=== PATIENT | female | born 2000 | race Caucasian/White ===

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

== ENCOUNTER 2022-07-25 14:00 | Day surgery (SDC) | payer BC, SELFPAY ==
[2022-07-25] VITALS (8 sets, daily range): BP systolic 114–143; BP diastolic 43–76; PULSE 61–78; RESP 11–19; TEMP 36.6–37.5; O2SAT 97–100; BMI 22.1
[2022-07-25 14:26] LABS: Bilirubin Negative (Negative); Blood Large (Negative); Clarity Clear (Clear); Glucose Negative (Negative); Ketones Negative (Negative); Leukocyte Esterase Negative (Negative); Nitrite Negative (Negative); Urobilinogen 0.2 mg/dL (Up to 0.2)
--- NOTE | 2022-07-25 14:30 | DI.CT_ITS ---
Exam(s) CT ABDOMEN PELVIS W EXAM: CT ABDOMEN PELVIS W CLINICAL HISTORY: right lower quadrant abdominal pain TECHNIQUE: Imaging Protocol: Axial computed tomography images with coronal and sagittal reformatted images were created and reviewed CONTRAST MATERIAL: Intravenous: Omnipaque 350 Contrast volume:100 mL Oral: No COMPARISON: No exams were available for comparison FINDINGS: ABDOMEN: Lung Bases: Normal where visualized. Liver: Normal density. No measurable mass. Portal, Superior Mesenteric, and Splenic Veins: Unremarkable. Gallbladder and Biliary Tract: No radiodense calculus or dilation. Pancreas: Normal density, no abnormal calcifications or inflammatory process. Spleen: Normal. Adrenals: No masses seen. Kidneys: Normal size, contour and axis. No radiodense stones or obstructive uropathy. No masses seen. Abdominal Aorta: Abdominal portion non-dilated. Bowel: No obstruction or bowel wall thickening. The appendix measures 9 mm in diameter. There is an appendicolith present. The appendix is fluid-filled. No abscess or free air. Peritoneal Cavity: There is a small amount of fluid in the pelvis. No free air. Lymph Nodes: Within normal limits. Bones: Within normal limits for the patient's age. Soft Tissues: Unremarkable. PELVIS: Bladder: Symmetric distention, no gross wall thickening. Reproductive Organs: Unremarkable as visualized. Lymph Nodes: Within normal limits. Bones: Within normal limits for the patient's age. IMPRESSION: 1. Findings consistent with acute appendicitis with appendicoliths. No abscess or free air. 2. Findings were discussed with Dr. Castillo Crowder at 3:58 p.m. on 07/25/2022. RADIATION DOSE DELIVERED: 681.01mGy.cm Total DLP DATA REPOSITORY: All CT scans at this facility are submitted to the National Radiology Data Registry (NRDR) Dose Index Registry (DIR) with the [employer] ([employer]). RADIATION OPTIMIZATION: All CT scans at this facility use at least one of these dose optimization te chniques: automated exposure control; mA and/or kV adjustment per patient size (includes targeted exa ms where dose is matched to clinical indication); or iterative reconstruction.
[2022-07-25 14:34] LABS: Bacteria Few HPF (Negative); C & S Indicated? Yes; Casts Negative LPF (Negative); Crystals Negative HPF (Negative); Epithelial Cells Few HPF (Negative); Mucus Negative (Negative)
--- NOTE | 2022-07-25 14:42 | ED.GENADUL_ITS ---
Discharge Plan Discharge Details Chief Complaint: Abd Prob Primary Care Provider: Jean Paul Bravo ED Provider: Rubens Crowder Home Meds and New Rx's Prescriptions: No Action fluticasone propionate [Flonase Allergy Relief] 9.9 ML spray,suspension 9.9 ml NS PRN dextroamphetamine-amphetamine [Adderall XR] 10 mg capsule,extended release 24hr 10 mg PO QAM MDD 10mg Qty: 28 0RF Medical Decision Making 22-year-old female presents with abdominal pain. Based off of location and patient's reported symptoms could represent appendicitis or other intra- abdominal abscess and will get CT abdomen pelvis to further evaluate. We will get biliary labs look for signs of hepatitis, pancreatitis, or other biliary disease. We will get broad labs look for electrolyte or metabolic cause of the patient's symptoms. Doubt other causes of the patient's symptoms at this time. No pelvic pain and no vaginal bleeding or discharge so I do not think that this is a obstetrical cause of the patient's symptoms such as ovarian cyst or torsion. Will await initial testing as above and provide some analgesia and reevaluate. HPI General Date/Time Provider Initiated Documentation: 07/25/22 14:26 . Limitations to Documentation: no limitations . Information obtained by: patient and family . HPI Narrative: 22-year-old female presents with right lower quadrant abdominal pain. Started this morning and has been getting worse. Associated with some nausea but no vomiting. No diarrhea or constipation. No vaginal bleeding or discharge. Denying any other complaints. Was worried and came here with her mom. Related Data Home Medications Medication Instructions Recorded Confirmed fluticasone propionate 50 9.9 ml NS PRN 02/22/17 03/03/22 mcg/actuation nasal spray,suspension (Flonase Allergy Relief) dextroamphetamine-amphetamine ER 10 mg PO QAM #28 caps 03/22/22 10 mg 24hr capsule,extend release (Adderall XR) Previous Rx's Medication Instructions Recorded dextroamphetamine-amphetamine ER 10 mg PO QAM #28 caps 03/22/22 10 mg 24hr capsule,extend release (Adderall XR) Allergies Allergy/AdvReac Type Severity Reaction Status Date / Time No Known Allergies Allergy Verified 03/03/22 09:36 General Stated Complaint: Abd Prob DANA: 3 Review of Systems Constitutional Constitutional: Denies chills, Denies fever(s) and Denies headache(s) Eyes Eyes: Denies change in vision ENT Ears, Nose, Mouth, and Throat: Denies headache(s) and Denies odynophagia Cardiovascular Cardiovascular: Denies chest pain and Denies dyspnea Respiratory Respiratory: Denies dyspnea Gastrointestinal Gastrointestinal: Reports abdominal pain, Denies diarrhea, Reports nausea, Denies odynophagia and Denies vomiting Genitourinary Genitourinary: Denies dysuria Musculoskeletal Musculoskeletal: Denies myalgias Integumentary/Breasts Skin/Breast: Denies changing lesions Neurologic Neurologic: Denies behavioral changes and Denies headache(s) Psychiatric Psychiatric: Denies behavioral changes Endocrine Endocrine: Denies heat intolerance Hematologic/Lymphatic Hematologic/Lymphatic: Denies lymphadenopathy PFSH All Active Problems ADHD (attention deficit hyperactivity disorder) evaluation (Acute) Oral contraceptive use (Acute) Ganglion cyst of dorsum of left wrist (Acute) Chronic rhinitis (Acute 03/22/17) Family history of sudden (Acute 05/26/14) PGF AGE 45 Flat feet (Acute 05/26/14) Visual changes (Acute 02/17/14) after strenuous exercise ? related to low blood sugar Hypoglycemia (Acute 02/17/14) not documented but gets lethargic if hasn't eaten- have worked on complex carbs and eating frequently to solve this. Medical History History of blurry vision RSV (respiratory syncytial virus infection) age 6 weeks UTI (urinary tract infection) Surgical History oral surgery Family History Grandfather Heart disease PGF- sudden age 45yr (smoking, ETOH, stress) Hyperlipidemia Brother No problems noted. Brother No problems noted. Social History Smoking/Tobacco Use Status: Never Second Hand Exposure: Yes Smoking risk assessment performed?: Yes Alcohol Intake: never Drug use: Never Substance use type: does not use Caregiver/Support person: No Household members: family Housing: house Communication Needs: None Pets and animals: Yes Pets and animals: dog(s) Do you think of yourself as: straight/heterosexual Current gender identity: female What is your relationship status?: never How often do you talk on the phone with friends or family?: decline to answer How often do you get together with friends or relatives?: decline to answer Do you belong to any clubs or organized social groups?: yes Panel score (0-1 are the most socially isolated patients): 1 What type of physical activity do you participate in: weight lifting and running Duration: 60-90 minutes/day Frequency: daily Kasia/Latter-Day: No preference Special kasia needs: No Seatbelt use: always Helmet use: Yes Working smoke detector in home: Yes Fire extinguisher in home: Yes Carbon monox detector in home: Yes Female Reproductive History Menstrual Age of Menarche: 13 control method: none Exam Const General: cooperative Nutritional Appearance: average body habitus Orientation: alert, awake and oriented x3 HENMT Head: normal to inspection Ears: external ears normal Mouth: moist mucous membranes Eyes Pupils: PERRL EOM: EOM intact bilaterally and No nystagmus Neck Neck: full ROM and no tracheal deviation Chest Chest: normal inspection of the chest Resp Auscultation: clear to auscultation bilaterally Cardio Rate: regular rate Rhythm: regular rhythm GI Inspection: normal to inspection Palpation: soft, no guarding and not rigid Other: Right lower quadrant abdominal tenderness with no guarding, rigidity, or rebound. Otherwise unremarkable abdominal exam. Back/Spine/Pelvis Back: No no CVA tenderness Thoracic/Lumbar Spine: thoracic and lumbar spine normal to inspection Skin General skin exam: no rashes or lesions noted Neuro General: patient alert, patient awake and patient oriented x3 Cranial Nerves: CN's II-XI intact bilaterally, PERRL and no nystagmus Cognition: normal cognition Motor: muscle tone normal throughout and strength 5/5 throughout Sensory Exam: no sensory deficits noted Extrem General: normal to inspection Course Reevaluation(s) Time: 15:46 Reevaluation: Labs unremarkable. CT is pending. I, Rubens Crowder, has signed out care to the oncoming team pending CT and reevaluation. Vital Signs Vital signs: Vital Signs Temperature 37.3 C 07/25/22 14:09 Pulse 78 07/25/22 14:09 Respiratory Rate 18 07/25/22 14:09 Blood Pressure 116/73 07/25/22 14:09 Pulse Oximetry 100 07/25/22 14:09 Temperature 37.3 C 07/25/22 14:09 Temperature Source Oral 07/25/22 14:09 Pulse 78 07/25/22 14:09 Respiratory Rate 18 07/25/22 14:09 Blood Pressure 116/73 07/25/22 14:09 Blood Pressure Position Sitting 07/25/22 14:09 Pulse Oximetry 100 07/25/22 14:09 Oxygen Delivery Method Room Air 07/25/22 14:09 Oxygen Flow Rate 0 07/25/22 14:09 Lab/Test Results Lab/Test Results: 07/25/22 14:14 Urine - Reflex from Ua Urine Culture - Pending Laboratory Tests Range/Units 07/25/22 14:14 Urine Color (Yellow) Yellow Urine Clarity (Clear) Clear Urine pH (5-8) 7.0 Ur Specific [place] (1.005-1.025) 1.020 Urine Protein (Negative) mg/dL Negative Urine Ketones (Negative) mg/dL Negative Urine Blood (Negative) Large H Urine Nitrite (Negative) Negative Urine Bilirubin (Negative) Negative Urine Urobilinogen (Up to 0.2) mg/dL 0.2 Ur Leukocyte Esterase (Negative) Negative Urine RBC (0-2) HPF 5-10 H Urine WBC (0-5) HPF 3-5 Ur Epithelial Cells (Negative) HPF Few Urine Crystals (Negative) HPF Negative Urine Bacteria (Negative) HPF Few Urine Casts (Negative) LPF Negative Urine Mucus (Negative) Negative Ur Culture Indicated? Yes Urine Glucose (Negative) mg/dL Negative POC- Test(urine) Negative
[2022-07-25 15:07] LABS: Abs Immature Grans 0.06 10^3/uL (0.0-0.06); Absolute Monocyte Count 1.31 10^3/uL (0.1-0.8); Basophils % 0.3; Eosinophils % 0.4; HCT 40.6 % (36.0-46.0); HGB 13.9 g/dL (11.2-15.7); Immature Grans % 0.3; Lymphocytes % 8.2; MCH 30.7 pg (27.0-33.0); MCHC 34.2 % (32.0-36.0); MCV 90 fL (80-95); Neutrophils % 83.8; RBC 4.53 10^6/uL (3.93-5.22); RDW 12.7 % (11.7-14.6); RDW-SD 41.9 fL; WBC 18.71 10^3/uL (4.4-10.8)
[2022-07-25 15:14] LABS: Lipase 36 U/L (16-77)
[2022-07-25] MEDS: Lactated Ringers 1,000 ML 1000 ML IV (15:16)
[2022-07-25] MEDS: Ketorolac 30 MG/ML VIAL IVP (15:16)
[2022-07-25] MEDS: Ondansetron 4 MG/2 ML VIAL IVP (15:17)
[2022-07-25 15:20] LABS: Absolute Basophil Count 0.06 10^3/uL (0.0-0.2); Absolute Eosinophil Count 0.07 10^3/uL (0.0-0.7); Absolute Lymphocyte Count 1.53 10^3/uL (1.2-3.4); Absolute Neutrophil Count 15.68 10^3/uL (1.2-6.7)
[2022-07-25 15:21] LABS: ALT 22 U/L (14-59); AST 22 U/L (15-37); Albumin 4.8 g/dL (3.4-5.0); Alkaline Phosphatase 53 U/L (46-116); BUN 13 mg/dL (7-18); Bilirubin, Total 0.4 mg/dL (0.2-1.0); CREATININE 0.8 mg/dL (0.55-1.02); Calcium 9.8 mg/dL (8.5-10.1); Chloride 97 mmol/L (98-107); Estimated GFR 107.44 (mL/min/1.73m2); Glucose 93 mg/dL (74-106); Potassium 3.7 mmol/L (3.5-5.1); Sodium 135 mmol/L (136-145); Total Protein 8.9 g/dL (6.4-8.2)
[2022-07-25] MEDS: Omnipaque 350 MG/ML 100 ML BTL IJ (15:31)
[2022-07-25] MEDS: Normal Saline - Diluent 50 ML VIAL IJ (15:31)
[2022-07-25] MEDS: PIPERACILLIN/TAZO 3.375 GM in Normal Saline 50 ML IVPB (16:21)
[2022-07-25] MEDS: Normal Saline 1,000 ML 125 ML IV (16:21)
--- NOTE | 2022-07-25 16:24 | W.EDPROG ---
Date of service: 07/25/22 Time of Service: 16:24 Medical Decision Making 1624: Care assumed from provider (Armando Crowder MD) Please see their initial HPI, PE, and documentation. Discussed patient details and case and pending workup and disposition. Patient is hemodynamically stable, and alert and oriented. At the time of signout awaiting patient to be transferred to OR for acute appendicitis. 1640: Dr. Guillaume at for patient eval. Patient transferred to OR in stable condition. Sign Out Sign Out Data: Sign Out Comment: pending or with Aundrea Last updated by Rubens Crowder MD at 07/25/22 16:17 Discharge Plan Disposition Condition: Good Discharge Details Chief Complaint: Abd Prob Attending Provider: Pushpa Guillaume Primary Care Provider: Jean Paul Bravo ED Provider: Christianne Camacho Discharge Instructions Activity:: see above Remove Dressings/Wound Care:: 24 hours Shower/Bathe:: 24 hours Diet:: As Tolerated
--- NOTE | 2022-07-25 16:26 | ANES.PREOP_ITS ---
General Info Date of Service Date Performed: 07/25/22 Height: 5 ft 9 in Weight: 68.039 kg Body Mass Index (BMI): 22.1 Surgical Procedure: Laparoscopic Appendectomy Meds Allergies and Home Medications Allergies Allergy/AdvReac Type Severity Reaction Status Date / Time No Known Allergies Allergy Verified 03/03/22 09:36 Home Medication Medication Instructions Recorded fluticasone propionate 50 9.9 ml NS PRN 02/22/17 mcg/actuation nasal spray,suspension (Flonase Allergy Relief) dextroamphetamine-amphetamine ER 10 mg PO QAM #28 caps 03/22/22 10 mg 24hr capsule,extend release (Adderall XR) Current Visit Medications: Current Medications Generic Name Dose Route Start Last Admin Trade Name Freq PRN Reason Stop Dose Admin Piperacillin Sod/Tazobactam 50 mls @ 100 mls/hr 07/25/22 16:01 07/25/22 16:21 Sod 3.375 gm/ Sodium Chloride IVPB 07/25/22 16:30 100 mls/hr NOW ONE Administration Protocol Sodium Chloride 1,000 mls @ 125 mls/hr 07/25/22 16:15 07/25/22 16:21 Saline 1000ml Bag IV 125 mls/hr INFUSION ANIKET Administration Iohexol 100 ml 07/25/22 15:30 07/25/22 15:31 Omnipaque 350 Mg/Ml 100 Ml Btl IJ 08/24/22 23:59 100 ml DIRECTED ANIKET Administration Sodium Chloride 50 ml 07/25/22 15:45 07/25/22 15:31 Normal Saline - Diluent 50 Ml Vial IJ 50 ml .FOR DI USE ANIKET Administration PFSH Active Problems Active Problems: Problem Status Onset Code ADHD (attention deficit hyperactivity disorder) evaluation Z13.39 Oral contraceptive use Z30.41 Ganglion cyst of dorsum of left wrist M67.432 Chronic rhinitis 03/22/17 J31.0 Family history of sudden 05/26/14 Z84.89 Flat feet 05/26/14 M21.41, M21.42 Visual changes 02/17/14 H53.9 Hypoglycemia 02/17/14 E16.2 Medical History Medical History (Updated 07/25/22 @ 16:31 by Pushpa Guillaume DO) History of blurry vision RSV (respiratory syncytial virus infection) age 6 weeks UTI (urinary tract infection) Surgical History Surgical History oral surgery Tobacco Smoking/Tobacco Use Status: Never Passive smoking exposure: Yes Second hand exposure: Yes Alcohol Alcohol Intake: never Substance Use Substance use: Never Substance use type: does not use Vital Signs and Lab Results Vital Signs Most Recent Vital Signs in EMR: Most Recent Vital Signs Temp Pulse Resp BP Pulse Ox 37.3 C 78 18 116/73 100 07/25/22 14:09 07/25/22 14:09 07/25/22 14:09 07/25/22 14:09 07/25/22 14:09 Point of Care Results Point of Care Results: POC- Test(urine) Negative 07/25/22 14:18 Lab Results 07/25/22 14:56 07/25/22 14:56 Blood Type / Crossmatch: No Data to Display Complete Blood Count: White Blood Count 18.71 10^3/uL (4.4-10.8) H 07/25/22 14:56 Red Blood Count 4.53 10^6/uL (3.93-5.22) 07/25/22 14:56 Hemoglobin 13.9 g/dL (11.2-15.7) 07/25/22 14:56 Hematocrit 40.6 % (36.0-46.0) 07/25/22 14:56 Platelet Count 10^3/uL (130-400) 07/25/22 14:56 Complete Metabolic Panel: Sodium 135 mmol/L (136-145) L 07/25/22 14:56 Potassium 3.7 mmol/L (3.5-5.1) 07/25/22 14:56 Chloride 97 mmol/L (98-107) L 07/25/22 14:56 Carbon Dioxide 27.0 mmol/L (21.0-32.0) 07/25/22 14:56 BUN 13 mg/dL (7-18) 07/25/22 14:56 Creatinine 0.8 mg/dL (0.55-1.02) 07/25/22 14:56 Est GFR (CKD-EPI 2020) 107.44 (mL/min/1.73m2) 07/25/22 14:56 Calcium 9.8 mg/dL (8.5-10.1) 07/25/22 14:56 Albumin 4.8 g/dL (3.4-5.0) 07/25/22 14:56 Glucose 93 mg/dL (74-106) 07/25/22 14:56 Liver Function Panel: Alanine Aminotransferase (ALT/SGPT) 22 U/L (14-59) 07/25/22 14: 56 Aspartate Amino Transf (AST/SGOT) 22 U/L (15-37) 07/25/22 14:56 Coagulation Panel: No Data to Display Cardiac Panel: No Data to Display Arterial Blood Gas: No Data to Display Venous Blood Gas: No Data to Display Pancreas Panel: Lipase 36 U/L (16-77) 07/25/22 14:56 Thyroid Panel: No Data to Display Infectious Disease: No Data to Display Blood Cultures: No Data to Display Toxicology Panel: No Data to Display Panel: No Data to Display Anesthesia Assessment and Plan Anesthesia History Personal History: No History of Anesthesia Complications Family History: No Family History of Anesthesia Complications Exercise Tolerance Exercise Tolerance: Metabolic Equivalents>4 Pertinent Negatives Pertinent Negatives: No Symptoms of GERD, No Major Cardiovascular Symptoms or Complaints, No Major Pulmonary Symptoms or Complaints and No History of CVA/TIA Cardiac & Pulmonary Exam Cardiac Exam: Normal S1/S2 Heart Sounds Pulmonary Exam: Clear Bilateral Breath Sounds Implantable Cardiac Device Does patient have a Pacemaker or an ICD?: No Airway Exam Known Difficult Airway: No Mallampati Class: 2 Mouth Opening: Normal (> 3cm) Thyromental Distance: Greater than 3 cm Neck Range of Motion: Full ROM Neck Circumference: Normal Teeth Condition: Normal Dentition ASA Classification ASA Score: ASA 2 Emergency Case?: Yes NPO Status NPO Status: NPO Clears >2 hours, Solids >8 hours Status Status: Negative HCG Anesthesia Plan Resuscitation Status: Full Code Anesthesia Technique: General Anesthesia Airway Planned: Endotracheal Tube Monitors Used: Standard Monitors
--- NOTE | 2022-07-25 16:29 | HPE_ITS ---
Date of service: 07/25/22 Time of Service: 16:29 Assessment and Plan Assessment and plan (1) Acute appendicitis: Status: Acute Assessment and plan: -zosyn -Patient will be taken for laparoscopic appendectomy Informed consent is obtained for the procedural (explained in simple layman's terms that the pt and/or family could understand) explaining risks vs benefits and alternatives to the procedure and consequences if we do not do the procedure. Risks include but are not limited to: bleeding, infections, pneumonia, blood clots/DVT/PE, anesthesia (aspiration, damage to teeth/airway/MD/CVA //prolonged mechanical ventilation/PTX/IV infections), damage to bowel, bladder, blood vessels. Damage to solid organs requiring removal. Infertility. Leakage from anastomosis requiring colostomy/ Wound infections requiring further surgery. ?Scarring and disfigurement. Subsequent bowel obstructions from scar tissue.? Chronic pain or numbness from the incision, or hernia. Possible open procedure if minimally invasive procedure is being attempted. History of Present Illness Narrative: Patient woke up with periumbilical and nausea pain today. She has never experienced anything like this before. She denies any antecedent trauma. Throughout the course of the day she became more nauseated and developed more pain. The pain is now settled into the right lower quadrant. Her last meal was at 10 AM today. She had tea at noon. She has not vomited. Her test was negative. Last. Was a week ago. She has never had problems with cysts or ovaries in the past. She does feel feverish at this time. She has never had anesthesia before. Her only surgery was wisdom teeth but they did not put her out. She denies any medical problems-such as asthma, seizures, heart disease or diabetes. CT Lung Bases: Normal where visualized. Liver: Normal density. No measurable mass. Portal, Superior Mesenteric, and Splenic Veins: Unremarkable.? Gallbladder and Biliary Tract: No radiodense calculus or dilation. Pancreas: Normal density, no abnormal calcifications or inflammatory process. Spleen: Normal. Adrenals: No masses seen. Kidneys: Normal size, contour and axis. No radiodense stones or obstructive uropathy. No masses seen. Abdominal Aorta: Abdominal portion non-dilated. Bowel: No obstruction or bowel wall thickening. The appendix measures 9 mm in diameter.? There is an appendicolith present.? The appendix is fluid-filled.? No abscess or free air.? Peritoneal Cavity: There is a small amount of fluid in the pelvis.? No free air. Lymph Nodes: Within normal limits. Bones: Within normal limits for the patient's age.? Soft Tissues: Unremarkable. PELVIS: Bladder: Symmetric distention, no gross wall thickening. Reproductive Organs: Unremarkable as visualized. Lymph Nodes: Within normal limits. Bones: Within normal limits for the patient's age.? IMPRESSION: 1. Findings consistent with acute appendicitis with appendicoliths.? No abscess or free air. Review of Systems All systems reviewed & are unremarkable except as noted in HPI and below PFSH All Active Problems (Updated 07/25/22 @ 16:31 by Pushpa Guillaume DO) Acute appendicitis (Acute) ADHD (attention deficit hyperactivity disorder) evaluation (Acute) Oral contraceptive use (Acute) Ganglion cyst of dorsum of left wrist (Acute) Chronic rhinitis (Acute 03/22/17) Family history of sudden (Acute 05/26/14) PGF AGE 45 Flat feet (Acute 05/26/14) Visual changes (Acute 02/17/14) after strenuous exercise ? related to low blood sugar Hypoglycemia (Acute 02/17/14) not documented but gets lethargic if hasn't eaten- have worked on complex carbs and eating frequently to solve this. Medical History (Updated 07/25/22 @ 16:31 by Pushpa Guillaume DO) History of blurry vision RSV (respiratory syncytial virus infection) age 6 weeks UTI (urinary tract infection) Surgical History oral surgery Family History Grandfather Heart disease PGF- sudden age 45yr (smoking, ETOH, stress) Hyperlipidemia Brother No problems noted. Brother No problems noted. Social History Smoking/Tobacco Use Status: Never Second Hand Exposure: Yes Smoking risk assessment performed?: Yes Alcohol Intake: never Drug use: Never Substance use type: does not use Caregiver/Support person: No Household members: family Housing: house Communication Needs: None Pets and animals: Yes Pets and animals: dog(s) Do you think of yourself as: straight/heterosexual Current gender identity: female What is your relationship status?: never How often do you talk on the phone with friends or family?: decline to answer How often do you get together with friends or relatives?: decline to answer Do you belong to any clubs or organized social groups?: yes Panel score (0-1 are the most socially isolated patients): 1 What type of physical activity do you participate in: weight lifting and running Duration: 60-90 minutes/day Frequency: daily Kasia/Hinduism: No preference Special kasia needs: No Seatbelt use: always Helmet use: Yes Working smoke detector in home: Yes Fire extinguisher in home: Yes Carbon monox detector in home: Yes Female Reproductive History Menstrual Age of Menarche: 13 control method: none Meds Allergies and Home Medications Allergies Allergy/AdvReac Type Severity Reaction Status Date / Time No Known Allergies Allergy Verified 03/03/22 09:36 Home Medications Medication Instructions Recorded Confirmed Type fluticasone propionate 50 9.9 ml NS PRN 02/22/17 03/03/22 History mcg/actuation nasal spray,suspension (Flonase Allergy Relief) dextroamphetamine-amphetamine ER 10 mg PO QAM #28 caps 03/22/22 Rx 10 mg 24hr capsule,extend release (Adderall XR) Exam Const General: cooperative, healthy appearing, comfortable, well developed and well groomed Nutritional Appearance: average body habitus Orientation: alert, awake and oriented x3 Other: flushed PHYSICAL EXAM GENERAL APPEARANCE: Alert, healthy appearance, oriented, x 3,? in no acute distress HYDRATION: Well hydrated HEAD, EYES, EARS, NECK, THROAT: Head is normocephalic, pupils equal, round, re active to light and accommodation, ocular movement intact, sclera clear and no jaundice. ?Dentition intact. NECK: ? Trachea midline.?? No JVD LUNGS: normal respiration/normal chest excursion. ?Clear to auscultation bilaterally. ?No wheeze. ?HEART: Regular rate and rhythm. no murmurs EXTREMITY: No edema or cyanosis.? no leg pain, redness, swelling.? ABDOMEN: soft pain at McBurney's point. Negative rebound /Rovsing's Results Labs 07/25/22 14:56 07/25/22 14:56 Labs: Laboratory Results - last 24 hr 07/25/22 07/25/22 07/25/22 14:14 14:56 14:56 WBC RBC Hgb Hct MCV MCH MCHC RDW Plt Count MPV Immature Gran % Neutrophils % Lymphocytes % Monocytes % Eosinophils % Basophils % Nucleated RBC % Absolute Neutrophils Absolute Lymphocytes Absolute Monocytes Absolute Eosinophils Absolute Basophils Sodium 135 L Potassium 3.7 Chloride 97 L Carbon Dioxide 27.0 Anion Gap 11.0 BUN 13 Creatinine 0.8 Est GFR (CKD-EPI 2020) 107.44 Glucose 93 Calcium 9.8 Total Bilirubin 0.4 AST 22 ALT 22 Alkaline Phosphatase 53 Total Protein 8.9 H Albumin 4.8 Lipase 36 Urine Color Yellow Urine Clarity Clear Urine pH 7.0 Ur Specific [place] 1.020 Urine Protein Negative Urine Ketones Negative Urine Blood Large H Urine Nitrite Negative Urine Bilirubin Negative Urine Urobilinogen 0.2 Ur Leukocyte Esterase Negative Urine RBC 5-10 H Urine WBC 3-5 Ur Epithelial Cells Few Urine Crystals Negative Urine Bacteria Few Urine Casts Negative Urine Mucus Negative Ur Culture Indicated? Yes Urine Glucose Negative 07/25/22 14:56 WBC 18.71 H RBC 4.53 Hgb 13.9 Hct 40.6 MCV 90 MCH 30.7 MCHC 34.2 RDW 12.7 Plt Count MPV Immature Gran % 0.3 Neutrophils % 83.8 Lymphocytes % 8.2 Monocytes % 7.0 Eosinophils % 0.4 Basophils % 0.3 Nucleated RBC % 0.0 Absolute Neutrophils 15.68 H Absolute Lymphocytes 1.53 Absolute Monocytes 1.31 H Absolute Eosinophils 0.07 Absolute Basophils 0.06 Sodium Potassium Chloride Carbon Dioxide Anion Gap BUN Creatinine Est GFR (CKD-EPI 2020) Glucose Calcium Total Bilirubin AST ALT Alkaline Phosphatase Total Protein Albumin Lipase Urine Color Urine Clarity Urine pH Ur Specific [place] Urine Protein Urine Ketones Urine Blood Urine Nitrite Urine Bilirubin Urine Urobilinogen Ur Leukocyte Esterase Urine RBC Urine WBC Ur Epithelial Cells Urine Crystals Urine Bacteria Urine Casts Urine Mucus Ur Culture Indicated? Urine Glucose Last Vital Signs Temp 37.3 C 07/25/22 14:09 Pulse 78 07/25/22 14:09 Resp 18 07/25/22 14:09 BP 116/73 07/25/22 14:09 Pulse Ox 100 07/25/22 14:09 Time Spent Time spent with Patient: <40 minutes Time was spent: preparing to see the patient(eg.review tests), obtaining and/or reviewing separately otained hiistory, ordering medications,tests, procedures, referring, communicating with other health intensive care medicine specialist, indepentently interpreting results, counseling the patient and care coordination
--- NOTE | 2022-07-25 16:33 | ROE_ITS ---
Date of service: 07/25/22 Time of Service: 16:34 Operative Note Operative Note DATE OF PROCEDURE: 07/25/22 PRE-OP DIAGNOSIS: Acute appendicitis POST-OP DIAGNOSIS: same PROCEDURE: Laparoscopic appendectomy SURGEON: Melo Ely WAITER/WAITRESS TAKE OUT: Joann Roger ANESTHESIA TYPE: Local By Surgeon and General LMA/ETT Refer to Anesthesia Record ESTIMATED BLOOD LOSS: 5 PATHOLOGY: other COMPLICATIONS: None Patient was transported to: PACU Patient's condition: stable Procedure Description: INDICATIONS: The patient has signs and symptoms compatible with acute appendicitis and is brought to the OR for laparoscopic appendectomy, possible open procedure. Informed consent is obtained for the procedural (explained in simple layman's terms that the pt and/or family could understand) explaining risks vs benefits and alternatives to the procedure and consequences if we do not do the procedure. Risks include but are not limited to:bleeding,infections, pneumonia, blood clots/DVT/PE, anesthesia(aspiration, damage to teeth/airway/NM/CVA//prolonged mechanical ventilation/PTX/IV infections), damage to bowel, bladder,blood vessels, ureters. Damage to solid organs requiring removal. Infertility. Leakage from anastomosis requiring colostomy. Wound infections requiring further surgery. Scarring and disfigurement. Subsequent bowel obstructions from scar tissue. Possible open procedure if minimally invasive procedure is being attempted. Abscess and stump appendicitis as well as others. DESCRIPTION OF PROCEDURE: The patient was brought to the operating room suite and placed in supine position. Anesthesia was administered per the Department of Anesthesia. A Franklin catheter and OG tube are placed. The patient was prepped and draped in the usual sterile fashion using ChloraPrep scrub solution. Pause for the cause was done. 30 mL of 1% buffered was used for local anesthetization. A stab incision was made in the umbilicus and the Veress was inserted. Drop test was positive and insufflation was begun. When 15 mm of pressure was noted on the monitor, the Veress was removed, a #5 port inserted. Camera inserted through the port shows no damage to underlying structures. Bowel, liver and stomach that are visualized are normal in appearance. The portion of the uterus visualized is normal. The right tube and ovary are normal in appearance. The left ovary is about 2 cm in size and is probably due to a functional cyst. the appendix is inflamed, erythematous, mildly enlarged, & distened, but does not appear to have been ruptured. There is no purulent drainage in the pelvis. It is not adhered to any adjacent structures. A 12 mm port was then placed in the suprapubic position under direct visualization following creation of a local field block as well as a second 5 mm port in the LLQ. The appendix is elevated and a rent dissected into the mesentery. The base of the appendix is healthy and will hold stas. A Endo-YINA stapler is placed across the base of the appendix and fired and 2nd stapler placed across the mesentery and fired. The appendix is placed in a bag and brought out. There is no bleeding or enteric leakage from the staple lines. The pt does not require a drain. The abdomen was copiously irrigated with a liter of saline. All saline is evacuated. The scope and ports are removed. Pneumoperitoneum is evacuated. The fascia under the 12 mm port is closed with 0 Vicryl. There was no bleeding from the port sites as when they removed and the pneumoperitoneum evacuated. The wounds were copiously irrigated and closed in 2 layers with 4-0 Monocryl.? Skin glue is used.? Sterile dressings are applied. The patient tolerated the procedure without complication, transferred to the recovery room in stable condition. Family was apprised of patient condition. The patient can be discharged home later today. MELO ELY, DO
--- NOTE | 2022-07-25 17:47 | APP_PTH ---
PATIENT: Whit Velazquez LOC: [facility] U#:[id number] AGE/SX: 22/F ROOM: RE07/25/[address]: Pushpa Guillaume : 2000 BED: DIS: 07/25/2022 SPEC #: [id number] RECD: 07/25/22 18:29 STATUS: BINA REQ #: [id number] CHUCHO: 07/25/22 17:[address]: Pushpa Guillaume DEPT: Surgical Specimen RECD BY: Peg Garcia ENTERED: 07/25/22 18:30 SP TYPE: Appendix OTHR DR: Jean Paul Bravo, RIKKI Tissues: 1 - APPENDIX NOT INCIDENTAL Procedures: GROSS AND MICRO LEVEL 3 Comments: [id number]
--- NOTE | 2022-07-25 18:08 | DSE_ITS ---
Date of service: 07/25/22 Time of Service: 19:34 DS: Diagnosis Discharge Diagnosis (1) Acute appendicitis: Status: Acute Discharge Plan Disposition Patient Disposition: Home Condition: Good Discharge Details Reason For Visit: appendectomy Attending Provider: Pushpa Guillaume Primary Care Provider: Jean Paul Bravo Home Meds and New Rx's Prescriptions: New tramadol 50 mg tablet 50 mg PO Q4H PRN (Reason: pain (scale score 7-10)) Qty: 10 0RF Continued fluticasone propionate [Flonase Allergy Relief] 9.9 ML spray,suspension 9.9 ml NS PRN dextroamphetamine-amphetamine [Adderall XR] 10 mg capsule,extended release 24hr 10 mg PO QAM MDD 10mg Qty: 28 0RF Discharge Instructions Additional Instructions: ? ACTIVITY: The day of surgery should be spent resting. However, you can be up for short periods of time, I.E., going to the bathroom or kitchen. Avoid lifting or straining. On the day following surgery, you can be up and about as desired. ? LIFTING: Restrict your lifting to no more than five (5) pounds for two weeks after surgery. ??We will decide when you are done with restrictions and when you can return to work, at your follow-up appointment.? No sexual activity for two weeks.? ? DIET: There are no dietary restrictions following surgery. However, you may want to start with small amounts of liquids to avoid nausea the day of surgery. ? INCISION CARE: You will notice purple skin glue closing the incision.? Do not peel this off- it will wear off on its own.? After 24 hours you may shower. The dressing may be replaced for comfort, but is not necessary. ?An ice bag may be applied to the incision for 72 hours following surgery. ? SIGNS OF INFECTION: It is not unusual to have some black and blue discolorati on of the skin around the incision. ?It will slowly disappear. If you have any increased redness, drainage, fever (above 100 degrees), please contact your doctor for an examination. ? DISCOMFORT: You may expect to have some mild discomfort at the incision sight. If severe pain develops you should contact your doctor for further instructions. ? DRIVING: NO driving for three (3) days after surgery, or if you are still taking narcotic pain medication.? ? MEDICATIONS: Alternate Tylenol 1000mg by mouth every 8 hours and Ibuprofen 600mg every 6 hours. ?Make sure you take ibuprofen with food and not on an empty stomach. ?Take the Tylenol and ibuprofen continuously for the first 72hrs- not just when you have pain.? Use the tramadol for breakthrough pain/pain >7.? Use ICE!?? Twenty minutes on, and then off, continuously for the first 72hours. If you are taking narcotic pain medication, follow the instructions on the label and do not drive. Pain medications can make you very constipated. Make sure you are moving your bowels daily. If not, take Miralax or Milk of Magnesia.?? Anesthesia makes you very constipated.? Take a dose of milk of magnesia the morning after surgery. ? REPORT: Unusual swelling, severe pain, unresolved nausea, signs of infection, or difficulty in urination to your surgeon. Follow up in clinic with Dr. Guillaume in 2 weeks.? [phone] Activity:: see above Remove Dressings/Wound Care:: 24 hours Shower/Bathe:: 24 hours Diet:: As Tolerated Discharge Orders Discharge Orders: Discharge Order (Routine); Ordered 07/25/22 Ordered By: Pushpa Guillaume DS: Summary Time Spent with Patient providing and/or coordinating discharge services: Less than 30 minutes Status at Discharge Functional status at discharge: independent ambulation Overall status at discharge: patient is progressing back to baseline Mental Status: mental status grossly normal Speech and Movement: speech and movement normal Mood: congruent mood Affect: normal affect Exam Psych Mental Status: mental status grossly normal Speech and Movement: speech and movement normal Mood: congruent mood Affect: normal affect DS: Data Vitals/I&O Vitals and I&O: Vital Signs Temperature 37.3 C 07/25/22 14:09 Temperature Source Oral 07/25/22 14:09 Pulse 78 07/25/22 16:45 Respiratory Rate 18 07/25/22 16:45 Respiratory Effort Normal, Non-Labored 07/25/22 15:17 Blood Pressure 124/67 07/25/22 16:45 Blood Pressure Position Sitting 07/25/22 14:09 Pulse Oximetry 100 07/25/22 16:45 Oxygen Delivery Method Room Air 07/25/22 16:45 Oxygen Flow Rate 0 07/25/22 16:45 Intake & Output 07/24/22 07/25/22 07/25/22 23:59 11:59 23:59 Intake Total 1000 / 1000 Output Total 200 / 200 Balance 800 / 800 Weight 68.039 kg Intake: IV 1000 / 1000 Output: Urine 200 / 200 Other: Urine Color Pale Yellow Urine Appearance Clear Data Completed and Pending Labs on day of discharge: Labs from last 24 hours 07/25/22 07/25/22 07/25/22 14:56 14:56 14:56 WBC 18.71 H RBC 4.53 Hgb 13.9 Hct 40.6 MCV 90 MCH 30.7 MCHC 34.2 RDW 12.7 Plt Count MPV Immature Gran % 0.3 Neutrophils % 83.8 Lymphocytes % 8.2 Monocytes % 7.0 Eosinophils % 0.4 Basophils % 0.3 Nucleated RBC % 0.0 Absolute Neutrophils 15.68 H Absolute Lymphocytes 1.53 Absolute Monocytes 1.31 H Absolute Eosinophils 0.07 Absolute Basophils 0.06 Sodium 135 L Potassium 3.7 Chloride 97 L Carbon Dioxide 27.0 Anion Gap 11.0 BUN 13 Creatinine 0.8 Est GFR (CKD-EPI 2020) 107.44 Glucose 93 Calcium 9.8 Total Bilirubin 0.4 AST 22 ALT 22 Alkaline Phosphatase 53 Total Protein 8.9 H Albumin 4.8 Lipase 36 Urine Color Urine Clarity Urine pH Ur Specific [place] Urine Protein Urine Ketones Urine Blood Urine Nitrite Urine Bilirubin Urine Urobilinogen Ur Leukocyte Esterase Urine RBC Urine WBC Ur Epithelial Cells Urine Crystals Urine Bacteria Urine Casts Urine Mucus Ur Culture Indicated? Urine Glucose 07/25/22 14:14 WBC RBC Hgb Hct MCV MCH MCHC RDW Plt Count MPV Immature Gran % Neutrophils % Lymphocytes % Monocytes % Eosinophils % Basophils % Nucleated RBC % Absolute Neutrophils Absolute Lymphocytes Absolute Monocytes Absolute Eosinophils Absolute Basophils Sodium Potassium Chloride Carbon Dioxide Anion Gap BUN Creatinine Est GFR (CKD-EPI 2020) Glucose Calcium Total Bilirubin AST ALT Alkaline Phosphatase Total Protein Albumin Lipase Urine Color Yellow Urine Clarity Clear Urine pH 7.0 Ur Specific [place] 1.020 Urine Protein Negative Urine Ketones Negative Urine Blood Large H Urine Nitrite Negative Urine Bilirubin Negative Urine Urobilinogen 0.2 Ur Leukocyte Esterase Negative Urine RBC 5-10 H Urine WBC 3-5 Ur Epithelial Cells Few Urine Crystals Negative Urine Bacteria Few Urine Casts Negative Urine Mucus Negative Ur Culture Indicated? Yes Urine Glucose Negative 07/25/22 14:14 Urine - Reflex from [facility] Urine Culture - Pending Preliminary micro results at discharge 07/25/22 14:14 Urine Culture - Pending Urine - Reflex from [facility] All Active Problems (Updated 07/25/22 @ 16:31 by Pushpa Guillaume DO) Acute appendicitis (Acute) ADHD (attention deficit hyperactivity disorder) evaluation (Acute) Oral contraceptive use (Acute) Ganglion cyst of dorsum of left wrist (Acute) Chronic rhinitis (Acute 03/22/17) Family history of sudden (Acute 05/26/14) PGF AGE 45 Flat feet (Acute 05/26/14) Visual changes (Acute 02/17/14) after strenuous exercise ? related to low blood sugar Hypoglycemia (Acute 02/17/14) not documented but gets lethargic if hasn't eaten- have worked on complex carbs and eating frequently to solve this. Medical History (Updated 07/25/22 @ 16:31 by Pushpa Guillaume DO) History of blurry vision RSV (respiratory syncytial virus infection) age 6 weeks UTI (urinary tract infection) Surgical History oral surgery Family History Grandfather Heart disease PGF- sudden age 45yr (smoking, ETOH, stress) Hyperlipidemia Brother No problems noted. Brother No problems noted. Social History Smoking/Tobacco Use Status: Never Second Hand Exposure: Yes Smoking risk assessment performed?: Yes Alcohol Intake: never Drug use: Never Substance use type: does not use Caregiver/Support person: No Household members: family Housing: house Communication Needs: None Pets and animals: Yes Pets and animals: dog(s) Do you think of yourself as: straight/heterosexual Current gender identity: female What is your relationship status?: never How often do you talk on the phone with friends or family?: decline to answer How often do you get together with friends or relatives?: decline to answer Do you belong to any clubs or organized social groups?: yes Panel score (0-1 are the most socially isolated patients): 1 What type of physical activity do you participate in: weight lifting and running Duration: 60-90 minutes/day Frequency: daily Kasia/Mormonism: No preference Special kasia needs: No Seatbelt use: always Helmet use: Yes Working smoke detector in home: Yes Fire extinguisher in home: Yes Carbon monox detector in home: Yes Female Reproductive History Menstrual Age of Menarche: 13 control method: none Time Spent with Patient Time Spent with Patient: <45 minutes Time was spent: preparing to see the patient(eg.review tests), obtaining and/or reviewing separately otained hiistory, ordering medications,tests, procedures, referring, communicating with other health skin care therapist, indepentently interpreting results, counseling the patient and care coordination
[2022-07-25] MEDS: fentaNYL 100 MCG/2 ML VIAL IVP (18:30)
--- NOTE | 2022-07-25 19:21 | W.ANESPOSTOP ---
Postoperative Evaluation Date, Time and Location Date Performed: 07/25/22 Time Performed: 18:21 Patient Location: PACU Vital Signs Most Recent Imported Vital Signs: Most Recent Vital Signs Temp Pulse Resp BP Pulse Ox 37.5 C 61 16 114/76 98 07/25/22 18:53 07/25/22 18:53 07/25/22 18:53 07/25/22 18:53 07/25/22 18:53 Pain Score Most Recent Pain Score: Most Recent Pain Score Pain Level [abd] 4 07/25/22 18:53 Pain Level 4 07/25/22 18:37 Assessment Mental Status: Awake (Alert & Oriented to Patient Baseline) Airway and Respiratory Function: Patent airway with normal (patient baseline) respiratory exam Cardiovascular Function: Hemodynamically Stable Hydration Status: Adequately Hydrated Nausea & Vomiting: No Nausea or Vomiting Pain: Pain is tolerable per patient Peripheral Nerve Block: Patient did not receive a nerve block
[2022-07-25] MEDS: Ketorolac 15 MG/ML VIAL IVP (20:37)
[2022-07-25] MEDS: Normal Saline Flush 10 ML SYR IVP (20:38)
== END 2022-07-25 20:43 | disposition home or self-care (01) ==
LOC: ER 16:22 → SUR 17:03 → MS 18:36
PROVIDERS: Emergency Medicine Emergency Medical Services; Student in an Organized Health Care Education/Training Program; Emergency Provider Registered Nurse Emergency; PCP Nurse Practitioner Family; Visit Provider Surgery
PROC: 0DTJ4ZZ Resection of Appendix, Percutaneous Endoscopic Approach (ICD-10-PCS; CPT 44970; principal; 2022-07-25 17:15)
DX: K35.80 Unspecified acute appendicitis (principal); F90.9 Attention-deficit hyperactivity disorder, unspecified type; R10.31 Right lower quadrant pain; Z79.899 Other long term (current) drug therapy
CPT/HCPCS: 44970; 80053; 83690; 74177; 81003; 81015; 85025; 87086; 88304; G0378; J0131; J1100; J1885; J2001; J2405; J2543; J2704; J3010; J3490

== ENCOUNTER 2023-01-29 09:58 | Outpatient (REF) | payer BC, SELFPAY ==
--- NOTE | 2023-01-29 09:00 | PAPFT_PTH ---
PATIENT: Whit Velazquez LOC: [facility] U#:[id number] AGE/SX: 22/F ROOM: RE01/29/[address]: Katerina Rogers MD : 2000 BED: DIS: 01/29/2023 SPEC #: [id number] RECD: 01/29/23 13:25 STATUS: BINA REKirill #: [id number] CHUCHO: 01/29/23 09:[address]: Katerina Rogers DEPT: [facility] Cytology RECD BY: Peg Garcia ENTERED: 01/29/23 13:26 SP TYPE: PAPFT CARLOS DR: Jean Paul Bravo, RIKKI Tissues: 1 - CX/ENDOCX FOR PAP SMEARS Procedures: PAP THIN PREP/[facility] Screening HPV DNA PROBE Comments: (CHLAMYDIA/GC)
[2023-01-30 15:12] LABS: Chlamydia Result Negative (Negative); GC Result Negative (Negative)
== END 2023-01-29 09:59 | disposition home or self-care (01) ==
LOC: LBN 09:58
PROVIDERS: PCP Nurse Practitioner Family; Visit Provider Obstetrics & Gynecology
DX: Z12.4 Encounter for screening for malignant neoplasm of cervix (principal); Z11.3 Encounter for screening for infections with a predominantly sexual mode of transmission
CPT/HCPCS: 87491; 87591; 88142; 87624

== ENCOUNTER 2025-01-12 14:31 | Outpatient (REF) | payer BC, SELFPAY ==
[2025-01-13 11:17] LABS: Chlamydia Result Negative (Negative); GC Result Negative (Negative)
== END 2025-01-12 14:32 | disposition home or self-care (01) ==
LOC: LBN 14:31
PROVIDERS: PCP Nurse Practitioner Family; Visit Provider Nurse Practitioner Women's Health
DX: Z11.3 Encounter for screening for infections with a predominantly sexual mode of transmission (principal)
CPT/HCPCS: 87491; 87591

== ENCOUNTER 2025-02-27 00:21 | Outpatient (CLI) | payer BC, SELFPAY ==
[2025-02-27 12:44] LABS: ALT 13 U/L (10-49)
== END 2025-02-27 00:22 | disposition home or self-care (01) ==
PROVIDERS: PCP Nurse Practitioner Family; Visit Provider Dermatology
DX: Z79.899 Other long term (current) drug therapy (principal)
CPT/HCPCS: 36415; 84460; 84478